=== PATIENT | male | born 1975 | race Caucasian/White ===

== ENCOUNTER 2024-02-15 15:38 | Emergency (ER) | payer BC ==
[~2024-02-15] VITALS: Ht 170.2 cm; Wt 81.6 kg
[2024-02-15 15:38] VITALS: BP_SYST 115; PULSE 84; RESP 18; TEMP 97.1; O2SAT 99
[2024-02-15 16:26] LABS: BASOPHILS # (AUTO) 0.1 K/uL (0.0-0.2); BASOPHILS % (AUTO) 1.4 % (0.0-2.0); EOSINOPHILS # (AUTO) 0.2 K/uL (0.0-0.4); EOSINOPHILS % (AUTO) 3.4 % (0.0-4.0); HEMATOCRIT 41.3 % (36-54); HEMOGLOBIN 14.3 g/dL (14.0-18.0); LYMPHOCYTES % (AUTO) 20.8 % (20.5-51.5); MEAN CORPUSCULAR HEMOGLOBIN 30 pg (27-31); MEAN CORPUSCULAR HGB CONC 35 % (32-36); MEAN CORPUSCULAR VOLUME 87 fL (79.0-98.0); MONOCYTES # (AUTO) 0.5 K/uL (0.0-1.0); MONOCYTES % (AUTO) 10.1 % (1.7-9.3); NEUTROPHILS # (AUTO) 3.2 K/uL (1.8-7.7); NEUTROPHILS % (AUTO) 64.3 % (40.0-70.0); PLATELET COUNT (AUTO) 232 K/uL (130-430); RED BLOOD CELL COUNT(AUTO) 4.77 MIL/uL (4.2-6.2); RED CELL DISTRIBUTION WIDTH 14.1 % (9.0-15.0)
[2024-02-15 16:32] LABS: BILIRUBIN,URINE NEGATIVE (NEGATIVE); BLOOD, URINE 3+ (NEGATIVE); CLARITY/URINE CLEAR (CLEAR); COLOR,URINE YELLOW (YELLOW); GLUCOSE,URINE NEGATIVE (NEGATIVE); KETONES,URINE NEGATIVE (NEGATIVE); LEUKOCYTE ESTERASE ,URINE NEGATIVE (NEGATIVE); NITRITE, URINE NEGATIVE (NEGATIVE); PROTEIN URINE NEGATIVE (NEGATIVE)
[2024-02-15 16:39] LABS: RBC,URINE 0-3 /HPF (0-3)
[2024-02-15 16:40] LABS: BACTERIA,URINE RARE /HPF (None Seen); MUCUS,URINE None Seen /LPF (None Seen); WBC,URINE NONE SEEN /HPF (0-3)
[2024-02-15 17:07] LABS: CALCIUM 8.7 mg/dL (8.4-11.0); CREATININE 1.86 mg/dL (0.55-1.30); POTASSIUM 4.2 mmol/L (3.5-5.1)
[2024-02-15] MEDS ORDERED: HYDR-3917 PO (17:48)
[2024-02-15] MEDS: HYDROcodone/ACETAMIN 10-325 MG TAB PO ONE (18:33)
[2024-02-15] MEDS: IBUPROFEN 800 MG TABLET PO ONE (18:33)
[2024-02-15 18:37] VITALS: BP_SYST 102; PULSE 77; RESP 18; TEMP 98.6; O2SAT 96
== END 2024-02-15 18:35 | disposition home or self-care (01) ==
LOC: SED 15:38
DX: N43.2 Other hydrocele (principal); Z79.899 Other long term (current) drug therapy
CPT/HCPCS: 36415; 76870; 80048; 81000; 81001; 81015; 83605; 85025; 99284